=== PATIENT | male | born 1960 | race Caucasian/White ===

== ENCOUNTER 2023-03-27 08:13 | Outpatient (CLI) | payer BC ==
[2023-03-27] MEDS ORDERED: Magnevist 469MG/ML 20 ML VIAL ONE (12:39)
== END 2023-03-27 08:14 | disposition home or self-care (01) ==
LOC: CSHMRI 08:13
PROVIDERS: ATTEND Urology
DX: R97.20 Elevated prostate specific antigen [PSA] (principal); N40.0 Benign prostatic hyperplasia without lower urinary tract symptoms
CPT/HCPCS: 72197; 82565; A9579